=== PATIENT | female | born 1985 | race Caucasian/White ===

== ENCOUNTER 2024-02-06 15:07 | Outpatient (CLI) | payer MEDICAID ==
--- NOTE | 2024-02-06 22:56 | Ultrasound Report ---
PROCEDURE: Pelvic w/Transvaginal INDICATIONS: OVARIAN MASS TECHNIQUE: Real-time scanning was performed of the pelvic organs, with image documentation. Additional endovagi nal scanning was necessary due to incomplete visualization of the adnexal and endometrial structures by transabdominal scanning. COMPARISON: OB ultrasound on July 27, 2023. FINDINGS: Uterus: Uterus is anteverted and normal in size at 9.7 x 5 x 7.3 cm. The myometrium is heterogeneou s. The endometrium measures 9 mm in combined thickness. Calcified debris within the cervix. Ovaries: The right ovary measures 2.5 x 1.4 x 1.5 cm, with a calculated ovarian volume of 8 cc. The left ovary measures 5.2 x 3.8 x 3.6 cm, with a calculated ovarian volume of 37.3 cc. Lobulated, echo genic mass with hypoechoic rim and peripheral vascularity measuring 4.2 x 4.2 x 3.7 cm, previously 3. 5 x 2.8 x 3.7 cm. Less than 12 follicles can be seen in each ovary. Other: No pathologic free abdominal or pelvic fluid. IMPRESSION: 1.Left ovarian lobulated echogenic mass has increased in size measuring 4.2 x 4.2 x 3.7 cm, previousl y 3.5 x 2.8 x 3.7 cm which is indeterminate and may represent a dermoid. Given the increase in size, recommend an MRI pelvis ([employer] protocol) for further evaluation. 2.Calcified debris within the cervix which may represent evolving blood products. Attention on follow -up MRI. 3.Normal sonographic appearance of the right ovary. Reviewed by: Talha Mac MD on 02/06/2024 10:55 PM PDT Approved by: Talha Mac MD on 02/06/2024 10:55 PM PDT Station ID: [id number]
== END 2024-02-06 15:08 | disposition home or self-care (01) ==
LOC: DI 15:07
PROVIDERS: ATTEND Obstetrics & Gynecology
DX: R93.89 Abnormal findings on diagnostic imaging of other specified body structures (principal); N83.9 Noninflammatory disorder of ovary, fallopian tube and broad ligament, unspecified